=== PATIENT | male | born 1995 | race Caucasian/White ===

== ENCOUNTER 2021-05-17 17:14 | Emergency (ER) | payer OTHER ==
[~2021-05-17 17:14] MED LIST: ATIVAN0.5 MG PO; AUGMENTIN 875-1 EACH PO; FLAGYL500 MG PO; IBU800 MG PO; PEPCID40 MG PO; ZOFRAN4 MG PO
== END 2021-05-17 21:50 | disposition home or self-care (01) ==
LOC: ER1 17:14
DX: U07.1 COVID-19 (principal)
CPT/HCPCS: 0240U; 87081; 87880; 99283

== ENCOUNTER → 2021-06-27 | Outpatient (CLI) | payer OTHER | LOC: RAD 05-19 08:00 | DX: R13.10 Dysphagia, unspecified (principal); K21.9 Gastro-esophageal reflux disease without esophagitis; K44.9 Diaphragmatic hernia without obstruction or gangrene | CPT/HCPCS: 74221 ==

== ENCOUNTER → 2021-07-15 | Outpatient (CLI) | payer OTHER | LOC: NM 08:56 | DX: R11.0 Nausea (principal) | CPT/HCPCS: 78264; A9541 ==